=== PATIENT | male | born 1965 | race Caucasian/White ===

== ENCOUNTER 2019-11-16 17:55 | Emergency (ER) | payer BC ==
--- NOTE | 2019-11-16 18:12 | EDM.PDOC ---
ED HPI GENERAL MEDICAL PROBLEM - General Chief Complaint: Allergic Reaction Stated Complaint: Hives; allergic reaction Time Seen by Provider: 11/16/19 18:08 Source of Information: Reports: Patient History Limitations: Reports: No Limitations - History of Present Illness INITIAL COMMENTS - FREE TEXT/NARRATIVE: Began having hives Unsure of exposure No difficulty breathing or swallowing No previous hx/o same Onset: Today, Sudden Duration: Minutes:, Improving, Resolved Prior to Arrival Location: Reports: Generalized - Related Data Allergies Allergy/AdvReac Type Severity Reaction Status Date / Time No Known Allergies Allergy Verified 11/16/19 17:56 Home Meds: Home Meds Aspirin [Ecotrin EC] 2 tab PO DAILY 11/16/19 [History] atorvaSTATin [Lipitor] 20 mg PO BEDTIME 11/16/19 [History] Social & Family History - Tobacco Use Smoking Status *Q: Never Smoker ED ROS ALLERGIC REACTION - Review of Systems Review Of Systems: See Below Respiratory: Reports: No Symptoms Cardiovascular: Reports: No Symptoms Skin: Reports: Urticaria ED EXAM GENERAL NO PERIP PULSE - Physical Exam Exam: See Below Exam Limited By: No Limitations General Appearance: Alert, WD/WN, No Apparent Distress Throat/Mouth: Normal Oropharynx Neck: Supple Respiratory/Chest: Lungs Clear Cardiovascular: Regular Rate, Rhythm Skin Exam: Other (No hives) Course - Vital Signs Last Recorded V/S: Last Vital Signs Temp Pulse 100 11/16/19 18:00 Resp 18 11/16/19 18:00 BP 140/96 H 11/16/19 18:00 Pulse Ox 95 11/16/19 18:00 - Orders/Labs/Meds Orders: Active Orders 24 hr Category Date Time Status diphenhydrAMINE [Benadryl] Med 11/16/19 18:10 Once 25 mg PO ONETIME ONE - Re-Assessments/Exams Free Text/Narrative Re-Assessment/Exam: 11/16/19 18:11 Pt given Benadryl 25 mg PO in ER Departure - Departure Time of Disposition: 18:15 Disposition: Home, Self-Care 01 Clinical Impression: Urticaria - Discharge Information *PRESCRIPTION DRUG MONITORING PROGRAM REVIEWED*: Not Applicable *COPY OF PRESCRIPTION DRUG MONITORING REPORT IN PATIENT SPENSER: Not Applicable Instructions: Hives Referrals: PCP,None [Primary Care Provider] - Additional Instructions: Benadryl as needed Follow up in clinic Sepsis Event Note (ED) - Evaluation Sepsis Screening Result: No Definite Risk - Focused Exam Vital Signs: Vital Signs Pulse Resp BP Pulse Ox 11/16/19 18:00 100 18 140/96 H 95 - My Orders Last 24 Hours: My Active Orders 11/16/19 18:10 diphenhydrAMINE [Benadryl] 25 mg PO ONETIME ONE - Assessment/Plan Last 24 Hours: My Active Orders 11/16/19 18:10 diphenhydrAMINE [Benadryl] 25 mg PO ONETIME ONE
[2019-11-16] MEDS: diphenhydrAMINE 25 MG Cap PO ONE (18:21)
== END 2019-11-16 18:25 | disposition home or self-care (01) ==
LOC: LL.ED 17:55
DX: L50.9 Urticaria, unspecified (principal)
CPT/HCPCS: 99282; A9270